=== PATIENT | male | born 1985 | race Caucasian/White ===

== ENCOUNTER 2017-07-28 10:06 | Emergency (ER) | payer MEDICAID ==
[~2017-07-28] VITALS: Ht 180.3 cm; Wt 85.0 kg
[2017-07-28] MEDS ORDERED: LORAZEPAM 2 MG INJ IV STA (10:08)
[2017-07-28] MEDS ORDERED: SOD CHLORIDE 0.9% 500 ML IV STA (10:08)
[2017-07-28 10:26] VITALS: Ht 180.3 cm; Wt 85.0 kg
[2017-07-28] MEDS ORDERED: THIAMINE 100 MG TAB PO ONE (10:30)
[2017-07-28] MEDS ORDERED: FOLIC ACID 1 MG TAB PO ONE (10:30)
[2017-07-28 11:00] LABS: CALCIUM 9.4 mg/dl (8.4-10.2); CREATININE 0.76 mg/dl (0.61-1.24); POTASSIUM 3.7 mmol/L (3.5-5.1)
--- NOTE | 2017-07-28 11:46 | ERD ---
ER Documentation Chief Complaint Chief Complaint bibr sp seizure witness by friends. pt is a/o x 4 vs wnl HPI This is a 31-year-old male who presents with witnessed seizure. The patient had a witnessed generalized tonic-clonic seizure with no head trauma lasting less than 1 minute with spontaneous resolution, short postictal state. The patient reports that he has been diagnosed with a seizure disorder but he states this is related to stopping drinking alcohol. He states his last drink was approximately 5-6 days ago. He denies any significant headache. He describes a history of seizures when he stops drinking. He states that someone in the emergency room started him on a seizure medication but he only took it for 1 or 2 weeks and has not taken it for at least one month. He has never seen a neurologist and never had an EEG. He has had a CAT scan before that was negative. Patient at this point does not describe any symptoms. He denies any headache chest pain or shortness of breath, no fevers or chills. No neck pain. Accu-Chek in the field was normal. ROS All systems reviewed and are negative except as per history of present illness. Medications Home Meds No Active Prescriptions or Reported Meds Allergies Allergies: Coded Allergies: No Known Allergy (Unverified , 07/28/17) PMhx/Soc Medical and Surgical Hx: pt denies Medical Hx Hx Neurological Disorder: Yes ("had a seizure 3 weeks ago") Hx Alcohol Use: No Hx Substance Use: No Hx Tobacco Use: No Smoking Status: Never smoker FmHx Family History: No diabetes Physical Exam Vitals Vital Signs Date Time Temp Pulse Resp B/P Pulse Ox O2 Delivery O2 Flow Rate FiO2 07/28/17 10:26 98.4 100 18 142/89 98 Physical Exam General: Well developed, well nourished, no acute distress Head: Normocephalic, atraumatic. Eyes: Pupils equally reactive, EOM intact ENT: Moist mucous membranes Neck: Supple, no lymphadenopathy, No midline tenderness, deformities, step-offs to the cervical spine, full active and passive range of motion without midline pain. Respiratory: Lungs clear bilaterally, no distress Cardiovascular: RRR, no murmurs, rubs, or gallops Abdominal: Soft, non-tender, non-distended, no peritoneal signs : Deferred MSK: No edema, no unilateral swelling, 5/5 strength Neurologic: Alert and oriented, moving all extremities, normal speech, no focal weakness, no cerebellar signs, very slight tremor Skin: No rash Psych: Normal mood Result Diagram: 07/28/17 1019 Results 24 hrs Laboratory Tests Test 07/28/17 10:19 07/28/17 10:36 Sodium Level 134mmol/L Potassium Level 3.7mmol/L Chloride Level 98mmol/L Carbon Dioxide Level 23mmol/L Anion Gap 17 Blood Urea Nitrogen 8mg/dl Creatinine 0.76mg/dl Glucose Level 183mg/dl Calcium Level 9.4mg/dl Bedside Glucose 186mg/dL Current Medications Medications (Trade) Dose Ordered Sig/Barney Route PRN Reason Start Time Stop Time Status Last Admin Dose Admin Sodium Chloride (NS) 500 ml @ 500 mls/hr Q1H STAT IV 07/28/17 10:08 07/28/17 11:07 DC 07/28/17 10:49 Lorazepam (Ativan) 1 mg ONCE STAT IV 07/28/17 10:08 07/28/17 10:11 DC 07/28/17 10:46 Thiamine HCl (Vitamin B1) 100 mg ONCE ONCE PO 07/28/17 10:30 07/28/17 10:31 DC 07/28/17 10:57 Folic Acid (Folic Acid) 1 mg ONCE ONCE PO 07/28/17 10:30 07/28/17 10:31 DC 07/28/17 10:57 Procedures/MDM LAB INTERPRETATION: No significant electively disturbance MEDICAL DECISION MAKING: The patient had a seizure today that is likely secondary to alcohol withdrawal. The patient has only mild evidence of withdrawal with slight tremor, no significant tachycardia or hypertension. The patient exhibits no signs or symptoms concerning for head injury or increased intracranial pressure. He has had workup in the past including CT brain to rule out mass. The patient has not been compliant with any seizure medications though I do not believe that he requires seizure medications as I feel his seizures are more likely related to alcohol abuse rather than true epilepsy. The patient has not seen a neurologist. He does not take seizure medications and at this point I do not feel he requires initiation of antiepileptic medications. The patient was advised to continue cessation of alcohol. He was advised to follow-up with primary care physician and he will need to see a neurologist. Referral information has been provided to this patient including community hospital setting. ER COURSE: Seizure precautions were initiated. Patient given Ativan, IV fluids, thiamine and folic acid. He continues to be well-appearing and has been observed for approximately 2 hours in the emergency room during which time he is remained stable without recurrent seizure. The patient is safe for discharge with outpatient follow-up as documented above. Since the patient has not required repeat dosing of benzodiazepines I do not feel he warrants inpatient hospitalization. I kept the patient and/or family informed of laboratory and diagnostic imaging results throughout the emergency room course. DISPOSITION PLAN: We discussed follow up with the patient's primary care doctor within 24 to 48 hours as needed. We also discussed return to the emergency room for worsening symptoms or worsening condition. Outpatient referral: Primary care, neurology Departure Diagnosis: Primary Impression: Seizure disorder Additional Impression: Alcohol abuse Condition: Stable Patient Instructions: Seizure, Recurrent [Adult], Alcohol Abuse Referrals: [facility] YOU HAVE RECEIVED A MEDICAL SCREENING EXAM AND THE RESULTS INDICATE THAT YOU DO NOT HAVE A CONDITION THAT REQUIRES URGENT TREATMENT IN THE EMERGENCY DEPARTMENT. FURTHER EVALUATION AND TREATMENT OF YOUR CONDITION CAN WAIT UNTIL YOU ARE SEEN IN YOUR DOCTORS OFFICE WITHIN THE NEXT 1-2 DAYS. IT IS YOUR RESPONSIBILITY TO MAKE AN APPOINTMENT FOR [facility]. IF YOU HAVE A PRIMARY DOCTOR --you should call your primary doctor and schedule an appointment IF YOU DO NOT HAVE A PRIMARY DOCTOR YOU CAN CALL OUR PHYSICIAN REFERRAL HOTLINE AT IF YOU CAN NOT AFFORD TO SEE A PHYSICIAN YOU CAN CHOSE FROM THE FOLLOWING [facility] [address] [facility]. [facility] [address] [facility] [facility] [address] [facility] [facility] [address] [facility] [facility] [address] [facility]. [facility]. [address] [facility]. [facility] YOU HAVE RECEIVED A MEDICAL SCREENING EXAM AND THE RESULTS INDICATE THAT YOU DO NOT HAVE A CONDITION THAT REQUIRES URGENT TREATMENT IN THE EMERGENCY DEPARTMENT. FURTHER EVALUATION AND TREATMENT OF YOUR CONDITION CAN WAIT UNTIL YOU ARE SEEN IN YOUR DOCTORS OFFICE WITHIN THE NEXT 1-2 DAYS. IT IS YOUR RESPONSIBILITY TO MAKE AN APPOINTMENT FOR [facility]ARE. IF YOU HAVE A PRIMARY DOCTOR --you should call your primary doctor and schedule and appointment IF YOU DO NOT HAVE A PRIMARY DOCTOR YOU CAN CALL OUR PHYSICIAN REFERRAL HOTLINE AT . IF YOU CAN NOT AFFORD TO SEE A PHYSICIAN YOU CAN CHOSE FROM THE FOLLOWING [facility] INSTITUTIONS: [facility] [address] [place] [address] [facility] [address] [place] [address] [facility] [address] [place] [address] Additional Instructions: Call your primary care doctor TOMORROW for an appointment during the next 1 WEEK.Tell the confidential secretary that you were referred from this facility.See the doctor sooner or return here if your condition worsens before your appointment time. WILLIAM CONWAY MD Jul 28, 2017 11:46
== END 2017-07-28 12:09 | disposition home or self-care (01) ==
LOC: E/R 10:06
DX: G40.909 Epilepsy, unspecified, not intractable, without status epilepticus (principal); F10.10 Alcohol abuse, uncomplicated
CPT/HCPCS: 36415; 80048; 82962; 96374; J2060; J7040; Z7502; Z7610

== ENCOUNTER 2018-02-17 23:25 | Inpatient (IN) | END 2018-02-21 14:52 | disposition home or self-care (01) | DRG 897 ==